=== PATIENT | female | born 1955 | race Caucasian/White ===

== ENCOUNTER 2021-03-14 02:42 | Day surgery (SDC) | payer MEDICARE, SELFPAY ==
[2021-02-28 15:15] VITALS: BMI 24.0
--- NOTE | 2021-03-13 11:42 | PM.HPGS ---
History of Present Illness History of Present Illness Consent: Risks, benefits, and alternatives have been discussed and questions answered. Patient agrees to proceed with procedure. Chief complaint: hx of colon polyps Narrative: Shara Rosen is a 66 year old female here for colon cancer screening. She had a polyp removed 6 years ago. She also has had a significant change in bowel habits, having a great deal of constipation lately Review of Systems Review of Systems: All systems reviewed & are unremarkable except as noted in HPI and below PMFSH Past Medical History Medical History Fibroid GERD (gastroesophageal reflux disease) Hyperlipidemia Hypertension Hypothyroidism Osteoporosis Surgical History Surgical History History of hysterectomy History of total knee replacement Social History Social History Smoking status: Never smoker Alcohol intake: current Drinks per week: 1 Substance use: never Living arrangements: with family Gender identity (if verbalized by the patient): Female Sexual Orientation (if Verbalized by the Patient): Straight or Heterosexual Spiritual care concerns: No Meds Home Medications and Allergies Home Medications Medication Instructions Recorded Confirmed Type bupropion HCl 300 mg 24 hr tablet, 300 mg PO QAM 01/23/21 02/28/21 History extended release cholecalciferol (vitamin D3) 1,250 1,250 mcg PO WEEKLY 01/23/21 02/28/21 History mcg (50,000 unit) capsule citalopram 40 mg tablet 20 mg PO DAILY 01/23/21 02/28/21 History dicyclomine 10 mg capsule 10 mg PO BID #60 cap 01/23/21 02/28/21 Rx levothyroxine 25 mcg capsule 25 mcg PO DAILY 01/23/21 02/28/21 History omeprazole 40 mg capsule,delayed 40 mg PO DAILY 01/23/21 02/28/21 History release ondansetron 4 mg disintegrating 4 mg PO .prn #20 tablet 01/23/21 02/28/21 Rx tablet rosuvastatin 5 mg tablet 5 mg PO DAILY 01/23/21 02/28/21 History triamterene 37.5 1 tablet PO QAM 01/23/21 02/28/21 History mg-hydrochlorothiazide 25 mg tablet zolpidem 10 mg tablet 10 mg PO DAILY tablet 01/23/21 02/28/21 History ibandronate 150 mg PO MONTHLY 02/28/21 02/28/21 History oxybutynin chloride 10 mg PO DAILY 02/28/21 02/28/21 History Allergies Allergy/AdvReac Type Severity Reaction Status Date / Time ciprofloxacin [From Cipro] Allergy Mild Vomiting Verified 02/28/21 15:15 codeine Allergy Mild Vomiting Verified 02/28/21 15:15 ibuprofen [From Advil] Allergy Mild Vomiting Verified 02/28/21 15:15 meloxicam Allergy Mild Vomiting Verified 02/28/21 15:15 morphine Allergy Mild Vomiting Verified 02/28/21 15:15 naproxen Allergy Mild Vomiting Verified 02/28/21 15:15 nitrofurantoin Allergy Mild Vomiting Verified 02/28/21 15:15 [From Macrobid] fluoxetine [From Prozac] AdvReac Severe suicidal Verified 02/28/21 15:15 Exam Resp: Auscultation: clear to auscultation bilaterally Cardio: Rate: regular rate Rhythm: regular rhythm GI: GI Palp: Yes Soft to palpation and No Tenderness to palpation present (GI) Assessment and Plan Assessment and plan (1) Personal history of colonic polyps: Code(s): Z86.010 - Personal history of colonic polyps Status: Acute Assessment and Plan: Colonoscopy with possible biopsy or polypectomy or cautery or injection of substances.
--- NOTE | 2021-03-13 12:50 | WPDANESEPPF ---
Anes - Initial Pre Proc Eval Procedure: Operation Date: 03/14/21 09:45 Proposed Procedures p Screening Colonoscopy - Jay Colby MD Date/Time: 03/13/21 12:50 Surgeon: Jay Colby MD Pre Op Diagnosis: hx of colon polyps Patient Data Age: 66 Gender: F Height: 1.6 m Weight: 61.5 kg Allergies Allergy/AdvReac Type Severity Reaction Status Date / Time ciprofloxacin [From Cipro] Allergy Mild Vomiting Verified 02/28/21 15:15 codeine Allergy Mild Vomiting Verified 02/28/21 15:15 ibuprofen [From Advil] Allergy Mild Vomiting Verified 02/28/21 15:15 meloxicam Allergy Mild Vomiting Verified 02/28/21 15:15 morphine Allergy Mild Vomiting Verified 02/28/21 15:15 naproxen Allergy Mild Vomiting Verified 02/28/21 15:15 nitrofurantoin Allergy Mild Vomiting Verified 02/28/21 15:15 [From Macrobid] fluoxetine [From Prozac] AdvReac Severe suicidal Verified 02/28/21 15:15 Home Medications Medication Instructions Recorded Confirmed Type bupropion HCl 300 mg 24 hr tablet, 300 mg PO QAM 01/23/21 02/28/21 History extended release cholecalciferol (vitamin D3) 1,250 1,250 mcg PO WEEKLY 01/23/21 02/28/21 History mcg (50,000 unit) capsule citalopram 40 mg tablet 20 mg PO DAILY 01/23/21 02/28/21 History dicyclomine 10 mg capsule 10 mg PO BID #60 cap 01/23/21 02/28/21 Rx levothyroxine 25 mcg capsule 25 mcg PO DAILY 01/23/21 02/28/21 History omeprazole 40 mg capsule,delayed 40 mg PO DAILY 01/23/21 02/28/21 History release ondansetron 4 mg disintegrating 4 mg PO .prn #20 tablet 01/23/21 02/28/21 Rx tablet rosuvastatin 5 mg tablet 5 mg PO DAILY 01/23/21 02/28/21 History triamterene 37.5 1 tablet PO QAM 01/23/21 02/28/21 History mg-hydrochlorothiazide 25 mg tablet zolpidem 10 mg tablet 10 mg PO DAILY tablet 01/23/21 02/28/21 History ibandronate 150 mg PO MONTHLY 02/28/21 02/28/21 History oxybutynin chloride 10 mg PO DAILY 02/28/21 02/28/21 History Patient hx anesthesia problems: none Family hx anesthesia problems: none Results Review: All pre-operative results and documents have been reviewed as part of the pre-operative evaluation. [facility] Past Medical History Medical History (Updated 03/13/21 @ 12:52 by Yaniv Mayer DO) Fibroid GERD (gastroesophageal reflux disease) Hyperlipidemia Hypertension Hypothyroidism Osteoporosis Surgical History Surgical History (Updated 03/13/21 @ 12:52 by Yaniv Mayer DO) History of hysterectomy History of total knee replacement Social History Social History Smoking status: Never smoker Alcohol intake: current Drinks per week: 1 Substance use: never Living arrangements: with family Gender identity (if verbalized by the patient): Female Sexual Orientation (if Verbalized by the Patient): Straight or Heterosexual Spiritual care concerns: No Anes - Eval Final PreProcedure Day of Procedure 03/13/21 12:50 Patient weight: normal Heart: regular rate and rhythm Lungs: clear to auscultation and normal air movement Airway: Mallampati scale class II Neurological: alert and oriented Last oral intake: >/= 8 hours ASA classification: II Emergent: no Anesthetic plan: proceed Anesthesia type and monitoring: general GIVS and standard monitoring Results Review: All pre-operative results and documents have been reviewed as part of the pre-operative evaluation. Informed Consent: The patient's anesthetic plan and its attendant risks and benefits were discussed with the patient/family/POA. Questions were solicited and answers provided to the satisfaction of the patient/family/POA.
[2021-03-14 08:59] VITALS: BP 132/73; PULSE 81; TEMP 36.1; O2SAT 99
[2021-03-14] MEDS: LACTATED RINGERS 1,000 ML 150 ML IV CONT (08:59)
[2021-03-14 10:06] VITALS: BP 100/82; PULSE 58; RESP 14; O2SAT 100
[2021-03-14 10:16] VITALS: BP 94/57; PULSE 60; RESP 12; O2SAT 99
[2021-03-14 10:26] VITALS: BP 107/76; PULSE 61; RESP 12; O2SAT 99
== END 2021-03-14 10:39 | disposition home or self-care (01) ==
PROVIDERS: PCP Nurse Practitioner Family; Visit Provider Internal Medicine Gastroenterology
PROC: 0DJD8ZZ Inspection of Lower Intestinal Tract, Via Natural or Artificial Opening Endoscopic (ICD-10-PCS; CPT 45378; principal; 2021-03-14 09:45)
DX: Z12.11 Encounter for screening for malignant neoplasm of colon (principal); K63.5 Polyp of colon; K57.30 Diverticulosis of large intestine without perforation or abscess without bleeding; I10 Essential (primary) hypertension; E78.5 Hyperlipidemia, unspecified; E03.9 Hypothyroidism, unspecified; K21.9 Gastro-esophageal reflux disease without esophagitis; M81.0 Age-related osteoporosis without current pathological fracture
CPT/HCPCS: 45380; 88305; J2704; J7120